=== PATIENT | male | born 1960 | race Caucasian/White ===

== ENCOUNTER 2017-03-01 18:27 | Emergency (ER) | payer OTHER ==
[~2017-03-01] VITALS: Ht 180.3 cm; Wt 105.7 kg
[2017-03-01] MEDS ORDERED: COZAAR50 MG (18:33)
== END 2017-03-01 22:38 | disposition home or self-care (01) ==
LOC: EDBD 18:27 → ER 18:27
DX: J11.1 Influenza due to unidentified influenza virus with other respiratory manifestations (principal); J06.9 Acute upper respiratory infection, unspecified